=== PATIENT | male | born 1965 | race Caucasian/White ===

== ENCOUNTER 2023-06-10 08:23 | Outpatient (CLI) | payer OTHER, SELFPAY ==
--- NOTE | ~2023-06-10 | MR_ITS ---
MRI of the right shoulder Technique: Axial proton-density fat-sat images, coronal proton density fat-sat and T2 fat-sat images, and sagittal T1-weighted and T2 fat-sat images were acquired. Clinical History: Pain Findings: There is severe AC joint degenerative change. Coracoclavicular, coracoacromial, and coracoh umeral ligaments are intact. There is moderate to severe tendinosis of the supraspinatus and infraspinatus tendons. Possible low-g rade bursal surface fraying of the distal infraspinatus tendon. No high-grade partial or full-thickne ss tear of these tendons is seen. There is moderate subscapularis tendinosis. Tendon of long head of the biceps is intact with intra-articular tendinosis. Probable small anteroinferior labral tear present. There is minimal degenerative change of the glenohumeral joint. Inferior glenohumeral ligament is int act. No significant joint effusion. No fluid distention of the subacromial/subdeltoid bursa. No muscl e atrophy or edema. Impression: Extensive rotator cuff tendinosis. Possible low-grade bursal surface fraying of the distal infraspina tus tendon. No high-grade partial or full-thickness tear is seen. Probable small anteroinferior labral tear. Severe AC joint degenerative change. Minimal glenohumeral joint degenerative change. Reviewed, dictated and finalized at [facility]. Impression: Extensive rotator cuff tendinosis. Possible low-grade bursal surface fraying of the distal infraspinatus tendon. No high-grade partial or full-thickness tear is seen. Probable small anteroinferior labral tear. Severe AC joint degenerative change. Minimal glenohumeral joint degenerative ch greg.
== END 2023-06-10 08:24 ==
PROVIDERS: PCP Family Medicine; Visit Provider Family Medicine
DX: M25.511 Pain in right shoulder (principal); R93.6 Abnormal findings on diagnostic imaging of limbs
CPT/HCPCS: 73221

== ENCOUNTER → 2023-08-18 11:04 | Outpatient (CLI) | payer OTHER, SELFPAY ==
--- NOTE | ~2023-08-18 | MR_ITS ---
MRI of the thoracic spine Clinical History: Pain Technique: Axial T2-weighted and gradient images, and sagittal T1-weighted, T2-weighted, and STIR alma ges were acquired. Findings: There is no fracture or subluxation of the thoracic spine. Vertebral bodies maintain normal height and alignment. No bone marrow signal abnormality seen. There is mild to moderate degenerative disc narrowing throughout the thoracic spine, but there is no significant disc bulge or herniation. There are scattered mild facet joint degenerative changes. No s luke canal stenosis or cord compression evident. No epidural mass or collection seen. Paravertebral soft tissues are unremarkable. No abnormal signal seen in the spinal cord. Impression: Mild degenerative change, as above. No spinal canal stenosis or cord compression. No fracture or subluxation. Reviewed, dictated and finalized at location . ING PROGRAM COORDINATOR Impression: Mild degenerative change, as above. No spinal canal stenosis or cord compressio n. No fracture or subluxation.
== END ==
PROVIDERS: PCP Nurse Practitioner Family; Visit Provider Nurse Practitioner Family
DX: M54.6 Pain in thoracic spine (principal)
CPT/HCPCS: 72146